=== PATIENT | male | born 1970 | race Caucasian/White ===

== ENCOUNTER 2021-06-07 15:05 | Emergency (ER) | payer OTHER ==
[2021-06-07] MEDS ORDERED: Dexamethasone 4 MG/ML SDV IM ONE (17:05)
== END 2021-06-07 17:21 | disposition home or self-care (01) ==
LOC: DL.ED 15:05
DX: M51.16 Intervertebral disc disorders with radiculopathy, lumbar region (principal); I10 Essential (primary) hypertension; K21.9 Gastro-esophageal reflux disease without esophagitis; Z79.899 Other long term (current) drug therapy
CPT/HCPCS: 96372; 99283; J1100